=== PATIENT | female | born 1935 | race Caucasian/White ===

== ENCOUNTER 2017-03-02 04:16 | Inpatient (IN) ==
[2017-02-28 13:54] LABS: MANUAL DIFF NEEDED? NO
[2017-02-28 14:02] LABS: BASO% 0.5 % (0.0-0.8); EOS# 0.17 X1000 (0.0-0.7); EOS% 1.7 % (0.0-10.0); HEMATOCRIT 36.3 % (37.0-47.0); HEMOGLOBIN 11.4 g/dL (12.0-16.0); IMM GRAN# 0.02 X1000 (0.0-0.04); IMM GRAN% 0.2 % (0.0-0.5); LYMPH# 2.35 X1000 (1.2-3.4); MCH 27.7 PG (27-31); MCHC 31.4 g/dL (33-37); MCV 88.1 FL (81-99); MONO# 1.05 X1000 (0.11-0.59); MONO% 10.7 % (1.7-9.3); NEUT% 62.9 % (42.2-75.2); PLT 434 X1000 (130-400); RBC 4.12 XMIL (4.2-5.4)
[2017-02-28 14:21] LABS: AGAP 10; BUN 14 mg/dL (8-22); CALCIUM 9.2 mg/dL (8.8-10.2); CHLORIDE 99 mmol/L (98-107); COSMO 277; POTASSIUM 4.4 mmol/L (3.5-5.1); SODIUM 139 mmol/L (136-145); TCO2 30 mmol/L (25-35)
[2017-03-02] MEDS ORDERED: KEFZOL 1 GM/D5W 1 GM/50 ML IVPB ONE (05:32)
[2017-03-02] MEDS ORDERED: LR 1,000 ML ONE (06:05)
[2017-03-02] MEDS ORDERED: XYLOCAINE 1% ONE (06:25)
[2017-03-02] MEDS ORDERED: NS 1,000 ML ONE (06:25)
[2017-03-02] MEDS ORDERED: MARCAINE 0.25% PF/EPI 1:200,000 ONE (06:25)
[2017-03-02] MEDS ORDERED: HEPARIN ONE ×2 (06:25→06:44)
[2017-03-02] MEDS ORDERED: NS 500 ML ONE (06:25)
[2017-03-02] MEDS ORDERED: THROMBIN-JMI ONE (06:27)
[2017-03-02] MEDS ORDERED: NITROGLYCERIN 50 MG/D5W 0 MG/0 ML IV.SOLN ONE (06:30)
[2017-03-02] MEDS ORDERED: VERSED ONE (06:35)
[2017-03-02] MEDS ORDERED: QUELICIN (DOSE) ONE (06:42)
[2017-03-02] MEDS ORDERED: XYLOCAINE-MPF 2% ONE (06:42)
[2017-03-02] MEDS ORDERED: NEO-SYNEPHRINE ONE (06:42)
[2017-03-02] MEDS ORDERED: ZEMURON ONE (06:58)
[2017-03-02] MEDS ORDERED: OFIRMEV 1000 MG/ISOTONIC SOLN 1,000 MG/100 ML BOTTLE ONE (07:28)
[2017-03-02] MEDS ORDERED: DECADRON ONE (08:11)
[2017-03-02] MEDS ORDERED: ZOFRAN ONE (08:11)
[2017-03-02] MEDS ORDERED: BREVIBLOC ONE (09:02)
[2017-03-02] MEDS ORDERED: DIPRIVAN 1% ONE (09:19)
[2017-03-02 09:53] LABS: I-STAT BE 3 mmoll (-2-3); I-STAT GLUCOSE 116 mg/dL (70-105); I-STAT HCO3 27.4 mmoll (22.0-26.0); I-STAT HEMATOCRIT 31 % (38-51); I-STAT HEMOGLOBIN 10.5 g/dL (11.5-17.5); I-STAT IONIZED CALCIUM 1.09 mmoll (1.12-1.32); I-STAT K 3.6 mmoll (3.5-4.9); I-STAT PCO2 39.8 mmHg (35.0-45.0); I-STAT SO2 100 % (95-98); I-STAT SODIUM 137 mmoll (138-146); I-STAT TCO2 29 mmoll (23-27); I-STAT pH 7.446 (7.350-7.450)
--- NOTE | 2017-03-02 10:05 | OPERATIVE NOTE ---
PROCEDURE DATE: 03/02/2017 PREOPERATIVE DIAGNOSIS: Critical stenosis left carotid bulb. POSTOPERATIVE DIAGNOSIS: Critical stenosis left carotid bulb. PRINCIPAL PROCEDURE: Left carotid endarterectomy with patch angioplasty. SURGEON: Tiny Bowden MD [employer] DESIGNER: Umair Guillermo MD ANESTHESIA: General, in addition to local anesthetic. ESTIMATED BLOOD LOSS: 100 mL. DRAINS: TLS drain left neck. INDICATIONS: Miriam Melo is an 81-year-old white female patient of Dr. Hurtado, who on exam was noted to have a carotid bruit. A noninvasive carotid study suggested a critical stenosis at the takeoff of the left internal carotid artery and carotid endarterectomy was recommended. FINDINGS: She had a focal plaque at the takeoff of the left internal carotid artery, which was hemodynamically significant. She had calcified atherosclerotic disease in the bulb. It feathered nicely distally. Her was small and we did a patch angioplasty. DESCRIPTION OF PROCEDURE: The patient was brought to the operating room, placed supine, and received general anesthesia. I was present for positioning. We placed a sheet underneath her shoulders to extend her neck and we turned her head to the right. Her left neck was prepped and draped within the sterile field. She received Ancef prophylactically. I used an Ioban on the skin and we made an oblique incision along the anterior border of the left sternocleidomastoid muscle with a 15 blade scalpel. This incision was carried down through the subcutaneous tissue and through the platysma muscle using cautery, and we mobilized the sternocleidomastoid muscle laterally with the internal jugular vein. We identified the facial branch of the internal jugular vein and we divided it between hemostats and performed suture ligature to this vein with 3-0 popoff silk stitches. We identified the common carotid artery. We isolated it with a large vessel loop and we dissected from the common carotid artery distally to identify the branches of external and internal carotid arteries. We isolated the external carotid artery with a large red vessel loop. We dissected it past the plaque on the internal carotid artery. We identified the vagus nerve and also the hypoglossal nerve and preserved them. We controlled the internal carotid artery with a small red vessel loop. The patient was given 5000 units of heparin. After 3 minutes we stopped flow through the common carotid artery. Using the vessel loops alone we performed an end arterectomy by initially using an 11 blade scalpel in the distal common carotid artery and then Overton scissors to take the arteriotomy through the plaque onto the internal carotid artery. Our arteriotomy extended past the plaque. We placed a shunt, first proximally and then distally into the internal carotid artery. We used a shunt clamp for the internal carotid artery and just a vessel loop proximally. We used a Florence elevator to lift the disease out of the distal common and then the internal carotid artery. It feathered nicely distally. We used heparin and saline to thoroughly irrigate our arteriotomy site and any loose debris was removed with fine forceps. We chose a 0.8 cm wide bovine patch and we sewed that it to our arteriotomy site with a double-arm 6-0 Prolene stitch. Prior to completing closure of our arteriotomy site, we removed the shunt and we flushed the vessels through this arteriotomy site. Initially, we flushed the common carotid artery through our arteriotomy site and then we back bled the external carotid artery and internal carotid artery. We completed the closure of our arteriotomy site and re-established flow through the external carotid artery and then into the internal carotid artery. We had to use a single arm stitch to control bleeding in one area. We then placed a TLS drain. It was brought out through a separate stab incision inferior to our incision. We secured it to the skin with a 3-0 silk stitch. We closed the wound in layers. The platysma muscle was closed with a running 2-0 Vicryl stitch and the skin was closed with 4-0 Monocryl subcuticular stitch. Steri-Strips, followed by dry dressings were applied. Plans are for to go the recovery room and then the ICU. cc: MD Mike Cárdenas MD
[2017-03-02] MEDS ORDERED: TYLENOL PO PRN (10:50)
[2017-03-02] MEDS ORDERED: ZOFRAN IV PRN (10:51)
[2017-03-02] MEDS ORDERED: D50W SYRINGE IV PRN (10:52)
[2017-03-02] MEDS: LR 1,000 ML IV SCH (12:14)
[2017-03-02] MEDS: HUMALOG SUBQ SCH ×3 (12:18→21:36)
[2017-03-02] MEDS ORDERED: ROBINUL ONE (12:50)
[2017-03-02] MEDS ORDERED: NORCO-5 PO PRN (14:52)
[2017-03-02] MEDS: PRINZIDE 20/12.5MG PO SCH (21:35)
[2017-03-02] MEDS: XANAX PO SCH (21:35)
[2017-03-02] MEDS: NORCO-5 PO PRN (22:08)
[2017-03-03] MEDS: NORCO-5 PO PRN ×3 (01:12→21:17)
[2017-03-03] MEDS: HUMALOG SUBQ SCH ×4 (07:15→21:19)
[2017-03-03] MEDS: LR 1,000 ML IV SCH ×2 (07:22→21:50)
[2017-03-03] MEDS: ASPIRIN PO SCH (08:06)
[2017-03-03] MEDS: PRINZIDE 20/12.5MG PO SCH ×2 (08:06→21:17)
[2017-03-03] MEDS: CARDIZEM CD PO SCH (08:07)
[2017-03-03] MEDS ORDERED: ASPIRIN PO SCH (09:00)
--- NOTE | 2017-03-03 16:14 | PROGRESS NOTE ---
DATE: 03/03/2017 SUBJECTIVE: Ms. Melo is now postop day 1 from a left carotid endarterectomy with patch angioplasty. She is an 81-year-old white female patient of Dr. Hurtado. She has been hospitalized in our ICU and has done quite well. She is awake, cooperative, without evidence of neurologic deficit. She has minimal swelling involving her left neck. We removed her TLS drain this afternoon and we will transfer her to the floor and give her a soft diet. Possibly we can discharge her home tomorrow. cc: Tiny Bowden MD
[2017-03-03] MEDS: XANAX PO SCH (21:17)
[2017-03-03] MEDS: COLACE PO SCH (21:17)
[2017-03-04] MEDS: LR 1,000 ML IV SCH (04:53)
[2017-03-04] MEDS: NORCO-5 PO PRN (05:22)
[2017-03-04] MEDS: HUMALOG SUBQ SCH ×2 (06:19→11:53)
[2017-03-04] MEDS: ASPIRIN PO SCH (08:57)
[2017-03-04] MEDS: PRINZIDE 20/12.5MG PO SCH (08:57)
[2017-03-04] MEDS: COLACE PO SCH (08:57)
[2017-03-04] MEDS: CARDIZEM CD PO SCH (08:57)
[2017-03-04 13:19] VITALS: BP 119/65
--- NOTE | 2017-03-04 16:09 | DISCHARGE SUMMARY ---
ADMISSION DATE: 03/02/2017 DISCHARGE DATE: 03/04/2017 ADMITTING DIAGNOSIS: Asymptomatic critical left carotid stenosis. DISCHARGE DIAGNOSIS: Asymptomatic critical left carotid stenosis. PRINCIPAL PROCEDURE: Left carotid endarterectomy with patch angioplasty on 03/02/2017. DISCHARGE DISABILITY: Full. DISCHARGE DIET: Regular. DISCHARGE DISPOSITION: She will return to our outpatient office in 2 weeks. DISCHARGE MEDICATIONS: She is to return to her home medication in addition to a baby aspirin a day. HOSPITAL COURSE: Ms. Miriam Melo is a patient of Dr. Mike Hurtado. It was discovered that she had critical stenosis at the takeoff of her left internal carotid artery. We felt it was asymptomatic but we did recommend a left carotid endarterectomy. She was admitted on the day of surgery and underwent a left carotid endarterectomy with patch angioplasty. We used a shunt during the procedure. We felt the procedure went well and at the end of the procedure we did place a TLS drain in the left neck. She went to the ICU awake without evidence of neurologic deficit. She stayed in the ICU during her hospitalization. She remained awake. Hemodynamically she was satisfactory. She had minimal bruising involving her left neck. We removed her TLS drain on postop day 1. It was felt safe to discharge her to her home on postop day 2 with followup in my outpatient office in 2 weeks. All the stitches are underneath the skin. She will be discharged home under the care of her family and knows to contact me with any problems. cc: MD Mike Cárdenas
== END 2017-03-04 15:45 | disposition home or self-care (01) ==
LOC: SURHOLD 04:16 → ICU 10:21
PROVIDERS: ADMIT Surgery; ATTEND Surgery